=== PATIENT | male | born 1995 | race Caucasian/White ===

== ENCOUNTER 2019-09-23 00:19 | Emergency (ER) | payer OTHER, SELFPAY ==
--- NOTE | ~2019-09-23 | CT_ITS ---
EXAMINATION: CT cervical spine wo con DATE: 09/23/2019 01:25 INDICATION: Left-sided neck pain TECHNIQUE: Computed tomography (CT) of the cervical spine was performed without intravenous contrast. The dose-length product (DLP) was 440.45 mGy-cm. Automated exposure control and iterative reconstruc tion technique were employed. COMPARISON: None FINDINGS: There is no fracture, dislocation, or subluxation. The vertebral body heights, alignment, a nd intervertebral disc spaces are normal. The paravertebral soft tissues are unremarkable. The odonto id is intact. IMPRESSION: 1. No acute osseous abnormality. Reviewed, dictated and finalized at location A.
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
--- NOTE | ~2019-09-23 | CT_ITS ---
EXAMINATION: CT facial bones wo con DATE: 09/23/2019 01:27 INDICATION: Facial pain, initial encounter TECHNIQUE: Computed tomography (CT) of the facial bones and maxillofacial region was performed withou t intravenous contrast. The dose-length product (DLP) was 298.92 mGy-cm. Automated exposure control a nd iterative reconstruction technique were employed. COMPARISON: None. FINDINGS: There are comminuted and minimally displaced bilateral nasal bone fractures. No additional facial fracture is identified. There is partial opacification of the paranasal sinuses. The orbits ar e normal. The globes are intact. IMPRESSION: 1. Comminuted nasal bone fractures. Reviewed, dictated and finalized at location A.
[2019-09-23 00:19] VITALS: BP 118/72; PULSE 113; RESP 20; TEMP 37.1; O2SAT 98
[2019-09-23] MEDS: LIDOCAINE HCL 1% LOCAL INJ 20 ML VIAL 10 ML INFILTRATE (00:50)
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
[2019-09-23 01:57] VITALS: BP 120/68; PULSE 97; RESP 18; TEMP 36.9; O2SAT 98
== END 2019-09-23 02:09 | disposition home or self-care (01) ==
PROVIDERS: Emergency Provider Emergency Medicine
DX: S01.01XA Laceration without foreign body of scalp, initial encounter (principal); Y04.0XXA Assault by unarmed brawl or fight, initial encounter
CPT/HCPCS: 12001; 70450; 70486; 72125; 99283; 99284

== ENCOUNTER 2020-06-29 04:50 | Emergency (ER) | payer OTHER, SELFPAY ==
--- NOTE | ~2020-06-29 | XR_ITS ---
XR clavicle RT DATE: 06/29/2020 05:35 INDICATION: Injury, pain TECHNIQUE: AP and angled AP views COMPARISON: 06/29/2020 right shoulder FINDINGS: No fracture or dislocation of the clavicle. Right greater tuberosity fracture. IMPRESSION: Right humeral greater tuberosity fracture Reviewed, dictated and finalized at location A.
--- NOTE | ~2020-06-29 | XR_ITS ---
XR shoulder RT min 2V DATE: 06/29/2020 05:35 INDICATION: Injury, pain TECHNIQUE: Multiple views COMPARISON: None FINDINGS: There is a linear virtually nondisplaced fracture of the greater tuberosity of the right hu merus. No other fracture or dislocation. Normal alignment at the acromioclavicular and glenohumeral j oints. IMPRESSION: Virtually nondisplaced right humeral greater tuberosity fracture Reviewed, dictated and finalized at location A.
[2020-06-29 04:50] VITALS: BP 129/79; PULSE 101; RESP 20; TEMP 36.4; O2SAT 99
[2020-06-29] MEDS: KETOROLAC (*BKC) 60 MG/2 ML VIAL IM (05:31)
--- NOTE | 2020-06-29 06:23 | ED.UPPEXIN ---
HPI - Extremity Injury (Upper) General Chief Complaint: Extremity Injury, Upper Stated Complaint: shoulder pain Source: patient and family Mode of arrival: ambulatory Limitations: no limitations History of Present Illness HPI narrative: this is a 24-year-old male presents with some right shoulder pain with decreased range of motion injury occurred after he was playing football last evening at around 6:00 p.m. causing pain and point tenderness to the bicipital area of his right shoulder radiating into his right clavicle and having severe reduced range of motion secondary to pain and swelling. Has no neurological deficits has a strong brisk radial pulse on the right with no other injuries. complaint: injury to: right and shoulder Onset (ago): hour(s) Other Extremity Injury: Right: shoulder ( pain with decreased range of motion) Other injuries: none Handedness: right Place: outdoors Severity: severe Severity scale (1-10): 10 Relieving factors: cold therapy and immobilization Exacerbating factors: movement of extremity Context: direct blow and sports-related injury Associated symptoms: denies other symptoms Related Data Home Medications Medication Instructions Recorded Confirmed No Home Medications 06/29/20 06/29/20 Allergies Allergy/AdvReac Type Severity Reaction Status Date / Time No Known Allergies Allergy Verified 09/23/19 00:41 Review of Systems Review of Systems: All systems reviewed & are unremarkable except as noted in HPI and below PMFSH Past Medical History Medical History (Updated 06/29/20 @ 06:29 by Pascual Prince MD) Patient denies medical problems Exam Const: General: no acute distress HENMT: Head: normal to inspection Eyes: Conjunctivae: conjunctivae normal Pupils: Equal, round and reactive pupils present Neck: Neck: normal visual inspection, no lymphadenopathy and no meningeal signs Chest: Chest palpation & inspection: normal inspection of the chest Resp: Effort & Inspection: normal respiratory effort Auscultation: clear to auscultation bilaterally Cardio: Rate: regular rate Rhythm: regular rhythm GI: GI Palp: Yes Soft to palpation Urinary Catheter: Urinary Catheter: patent and draining Back/Spine/Pelvis: Back: no CVA tenderness Skin: General skin exam: normal color Rashes: no rashes Neuro: General: patient oriented x3 Extrem: Other: Right shoulder anterior tenderness with palpation with decreased range of motion secondary to pain and inflammation. No neurological deficits on the right with some no numbness or tingling in his arm her hands with a strong risk ulnar and radial pulse on the right. Psych: Appearance: grossly normal and well kempt Mental Status: mental status grossly normal Affect: normal affect Course Course Emergency Course: Reassessment of patient his pain level had improved slightly but still having right shoulder discomfort place the patient in a sling and reviewed x-ray findings with the patient and his mother and advised to follow-up with his primary care physician / orthopedist for further evaluation. Vital Signs Vital signs: Vital Signs Temperature 36.4 C 06/29/20 04:50 Pulse Rate 101 H 06/29/20 04:50 Respiratory Rate 20 06/29/20 04:50 Blood Pressure 129/79 06/29/20 04:50 Pulse Oximetry 99 06/29/20 04:50 Temperature 36.4 C 06/29/20 04:50 Pulse Rate 101 H 06/29/20 04:50 Respiratory Rate 20 06/29/20 04:50 Blood Pressure 129/79 06/29/20 04:50 Pulse Oximetry 99 06/29/20 04:50 Critical Care Time Critical Care Time Critical Care Time: No Discharge Plan Discharge Clinical Impression: Fracture of humerus Patient Disposition: Home, Self-Care Condition: Stable Instructions: Antibiotic Form, How to Use a Sling (ED), Shoulder Fracture in Children (ED) Additional Instructions: take medicine as prescribed, and follow-up with primary care physician /orthopedist for further evaluation and t
[2020-06-29 06:28] VITALS: BP 138/75; PULSE 75; RESP 20; O2SAT 98
== END 2020-06-29 06:37 | disposition home or self-care (01) ==
PROVIDERS: Emergency Provider Emergency Medicine
DX: M25.511 Pain in right shoulder (principal); S42.301A Unspecified fracture of shaft of humerus, right arm, initial encounter for closed fracture; W22.8XXA Striking against or struck by other objects, initial encounter
CPT/HCPCS: 73000; 73030; 96372; 99283; 99284; A4565; J1885

== ENCOUNTER 2020-10-11 01:23 | Emergency (ER) | payer OTHER, SELFPAY ==
--- NOTE | ~2020-10-11 | XR_ITS ---
EXAMINATION: XR chest 1V portable INDICATION: Chest wall pain TECHNIQUE: Portable AP chest at 0304 hours COMPARISON: None available FINDINGS: There are minimal airspace opacities in the lung bases and left midlung zone. There is no p leural effusion or pneumothorax. The cardiomediastinal silhouette is normal. IMPRESSION: 1. Minimal airspace opacity, consistent with atelectasis versus pneumonia. Reviewed, dictated and finalized at location A.
[2020-10-11 01:32] VITALS: BP 120/72; PULSE 72; RESP 18; TEMP 36.6; O2SAT 98
--- NOTE | 2020-10-11 01:32 | ECG_ITS ---
Measurements Intervals Oliver Rate: 81 P: 42 NH: 148 QRS: 45 QRSD: 98 T: 28 QT: 336 QTc: 391 Interpretive Statements SINUS RHYTHM BASELINE ARTIFACT- I, III, AVL NORMAL ECG Electronically Signed On 10-13-2020 6:19:12 CDT by Tl Burgos D.O.
[2020-10-11 02:15] LABS: Basophils Absolute Auto 0.07 K/mm3 (0.00-0.10); Basophils Percent Auto 0.7 % (0.0-1.0); Eosinophils Absolute Auto 0.35 K/mm3 (0.02-0.50); Eosinophils Percent Auto 3.5 % (1.0-6.0); Hematocrit 45.7 % (40.0-54.0); Hemoglobin 15.6 g/dL (14.0-18.0); Immature Granulocyte Absolute 0.03 K/mm3 (0.00-0.00); Immature Granulocyte Percent A 0.3 % (0.0-0.0); Lymphocytes Absolute Auto 3.37 K/mm3 (1.10-4.50); Lymphocytes Percent Auto 33.9 % (18.0-42.0); Mean Corpuscular HGB Conc 34.1 g/dL (32.0-36.0); Mean Corpuscular Hemoglobin 30.1 pg (27.0-31.0); Mean Corpuscular Volume 88.2 fL (78.0-102.0); Mean Platelet Volume 10.5 fl (8.7-11.0); Monocytes Absolute Auto 0.79 K/mm3 (0.10-0.90); Monocytes Percent Auto 7.9 % (2.0-11.0); Neutrophils Absolute Auto 5.3 K/mm3 (1.7-7.2); Neutrophils Percent Auto 53.7 % (50.0-70.0); Platelet Count Result 237 K/mm3 (150-420); Red Blood Count 5.18 M/mm3 (4.70-6.10); Red Cell Distribution Width 14.7 % (11.6-14.4); White Blood Count 9.9 K/mm3 (4.8-10.8)
[2020-10-11] MEDS: ACETAMINOPHEN 325 MG TABLET 650 MG PO (02:16)
[2020-10-11] MEDS: SODIUM CHLORIDE 0.9% IV 1,000 ML 999 ML IV CONT (02:17)
[2020-10-11] MEDS: CALCIUM CARBONATE (TUMS) 500 MG (200 MG ELEMENTAL) 1000 MG PO (02:30)
[2020-10-11] MEDS: SODIUM CHLORIDE 0.45% 1,000 ML 500 ML IV CONT (02:30)
[2020-10-11 02:33] LABS: Alanine Aminotransferase 25 U/L (16-63); Alkaline Phosphatase 64 U/L (46-116); Anion Gap 13 mmol/L (8-16); Aspartate Amino Transferase 20 U/L (15-37); Bilirubin,Total 0.3 mg/dL (0.00-1.00); Blood Urea Nitrogen 7 mg/dL (7-18); Calcium 8.1 mg/dL (8.5-10.1); Carbon Dioxide 23 mmol/L (21-32); Chloride 110 mmol/L (98-108); Estimated CRCL calculation 79 ml/min; Estimated Glomerular Filt Rate > 60; Glucose 90 mg/dL (70-99); Osmolality Calculated 300 mOsm/kg (285-295); Potassium 4.1 mmol/L (3.5-5.1); Sodium 146 mmol/L (136-145); Total Protein 7.5 g/dL (6.4-8.2); Troponin I 4.7 ng/L (0.00-60.4)
--- NOTE | 2020-10-11 02:58 | ED.GENADULT ---
HPI - General Adult General Source: patient and RN notes reviewed Mode of arrival: ambulatory Limitations: no limitations History of Present Illness Onset (ago): day(s) (2) Severity: mild Severity scale (1-10): 4 Quality: aching and dull Pain Consistency: constant Relieving factors: none Exacerbating factors: none Associated symptoms: nausea/vomiting Treatments prior to arrival: none Related Data Home Medications Medication Instructions Recorded Confirmed No Home Medications 06/29/20 10/11/20 Allergies Allergy/AdvReac Type Severity Reaction Status Date / Time No Known Allergies Allergy Verified 09/23/19 00:41 Review of Systems Review of Systems: All systems reviewed & are unremarkable except as noted in HPI and below PMFSH Past Medical History Medical History Medical history non-contributory Patient denies medical problems Exam Const: General: cooperative, no acute distress and well developed Nutritional Appearance: well nourished Orientation/consciousness: oriented to person and oriented to place Limitations: no limitations HENMT: Head: normal to inspection, normocephalic and atraumatic Ears: hearing grossly normal bilaterally, external ears normal and TM's normal bilaterally General nose exam: Normal external nose present and Normal nares present Face and sinus: normal facial exam Mouth: Yes Normal oral and palatal mucosa present, Yes oropharynx normal and Yes moist mucous membranes Eyes: General: appearance normal, both eyes and all related structures Periorbital: periorbital findings normal Eyelids: eyelids normal Conjunctivae: conjunctivae normal Sclera: sclerae normal Cornea: corneas normal Pupils: Equal, round and reactive pupils present EOM: EOMs intact bilaterally Neck: Neck: normal visual inspection Chest: Chest palpation & inspection: normal inspection of the chest Resp: Effort & Inspection: normal respiratory effort Auscultation: clear to auscultation bilaterally Percussion: percussion normal Cardio: Jugular venous distension: no JVD Palpation: normal PMI Rate: regular rate Rhythm: regular rhythm Heart sounds: S2 normal heart sound present Peripheral pulses: Peripheral pulses 2+ throughout GI: Inspection: normal to inspection GI Palp: Yes Soft to palpation and Yes No hepatosplenomegaly present Percussion: Yes normal to percussion Auscultation: normal bowel sounds : Male General Exam: Yes normal external exam Back/Spine/Pelvis: Back: no CVA tenderness Thoracic/Lumbar Spine: thoracic and lumbar spine normal to inspection Pelvis: no pain with anterior-posterior compression Skin: General skin exam: normal color and no rashes or lesions noted Rashes: no rashes Wounds: no wounds Hair: normal Neuro: General: oriented to person, oriented to place, oriented to time, patient oriented x3 and CN's II-XI intact bilaterally Cranial nerves: Yes CN's II-XII intact bilaterally, Yes Equal, round and reactive pupils present, Yes Normal accommodation reflex present and Yes Bilaterally intact EOM present Cognition (Neuro): normal cognition Speech: normal speech Gait exam (Neuro): Normal gait present Motor exam (neuro): 5/5 motor strength present throughout Sensory Exam: normal sensation Extrem: General: normal to inspection, full ROM, capillary refill normal and no pedal edema Psych: Appearance: grossly normal and well kempt Mental Status: mental status grossly normal Speech and movement: Normal speech and movement present Affect: normal affect Attitude: cooperative Thought process: Normal thought process present Thought content: Yes Normal thought content present Insight: Good insight present (Psych) Judgement: Good judgement present (Psych) Course Course Emergency Course: pt had no acute chest pain in the ED. he will go home for early PMD f/u. Reevaluation(s) Date: 10/11/20 Time: 02:26 Vital Signs Vital signs: Vi
[2020-10-11 03:30] VITALS: BP 130/60; PULSE 72; RESP 18; O2SAT 99
--- NOTE | 2020-10-11 03:35 | PC.NURSE ---
0230 0.45NS started IV
--- NOTE | 2020-10-11 03:55 | PC.NURSE ---
patient and friend in bed together rolling around
[2020-10-11 04:21] VITALS: BP 128/68; PULSE 88; RESP 18; TEMP 36.2; O2SAT 95
== END 2020-10-11 04:22 | disposition home or self-care (01) ==
PROVIDERS: Emergency Provider Emergency Medicine
DX: R07.89 Other chest pain (principal); T67.5XXA Heat exhaustion, unspecified, initial encounter
CPT/HCPCS: 36415; 71045; 80053; 84484; 85025; 93005; 96360; 96361; 99283; 99284; A9270; J7030